=== PATIENT | female | born 1970 | race African-American/Black ===

== ENCOUNTER 2021-07-10 13:39 | Emergency (ER) | payer OTHER, BC ==
[2021-07-10 14:23] LABS: Bilirubin Neg (Negative); Blood, Urine 10 (Negative); Clarity Clear (Clear); Glucose, Urine (Dipstick) Normal (Negative); Ketone, Urine 150 mg/dL (Negative); Leukocyte Negative (Negative); Nitrite Negative (Negative); Protein, Urine (Dipstick) 30 mg/dl (Neg-Trace); Urobilinogen Normal mg/dL (Less than 2)
[2021-07-10 14:38] LABS: RBC/HPF 0-3 HPF (0-3); Squamous Epithelial 0-3 HPF (0-3); WBC/HPF 0-3 HPF (0-3)
[2021-07-10 14:39] LABS: Bacteria/HPF Rare-Few HPF (None Seen); Mucous/LPF Few LPF (<2+)
[2021-07-10 14:40] LABS: #Neutrophils 17.4 10x3/uL (1.5-8.4); %Basophils 0.2 % (0.0-2.0); %Eosinophils 0.1 % (0.0-6.0); %Lymphocytes 5.5 % (18.0-47.0); %Neutrophils 88.7 % (40.0-75.0); Hemoglobin 12.1 g/dL (12.0-15.5); Mean Corpuscular HGB CONC 31.8 g/dL (32.0-36.0); Mean Corpuscular Hemoglobin 27.5 pg (27.0-33.0); Mean Corpuscular Volume 86.6 fl (81.6-98.3); Mean Platelet Volume 9.9 fl (7.4-10.4); Platelet Count 312 10x3/uL (150-450); RBC Distribution Width 13.3 % (11.5-14.5); White Blood Cell (WBC) Count 19.7 10x3/uL (3.5-10.5)
[2021-07-10 14:58] LABS: ALT (SGPT) 12 U/L (8-55); AST (SGOT) 14 U/L (5-34); Albumin 3.9 g/dL (3.5-5.0); Alkaline Phosphatase 59 U/L (40-110); Anion Gap 16 mmol/L (10-20); BUN (Urea Nitrogen) 10 mg/dL (7.0-18.7); Bilirubin, Total 0.4 mg/dL (0.2-1.2); Calc. Creatinine Clearance 0 mL/min (70-130); Calcium 10.4 mg/dL (7.8-10.44); Carbon Dioxide 25 mmol/L (22-29); Chloride 100 mmol/L (98-107); Glucose 100 mg/dL (70-105); Lipase 9 U/L (8-78); Potassium 3.7 mmol/L (3.5-5.1); Protein, Total 8.9 g/dL (6.0-8.3); Sodium 137 mmol/L (136-145)
[2021-07-10] MEDS ORDERED: Morphine 4 MG/ML VIAL ONE ×2 (17:13→19:26)
[2021-07-10] MEDS ORDERED: Morphine 2 MG/ML VIAL ONE (17:13)
[2021-07-10] MEDS ORDERED: Ondansetron PF 4 MG/2 ML Vial ONE (19:26)
[2021-07-10] MEDS ORDERED: Ketorolac Tromethamine 30 MG/ML VIAL ONE (19:26)
[2021-07-10 19:41] LABS: BHCG - Serum POSITIVE (NEGATIVE); Pregs Control Background? CLEAR/WHITE (CLR/WHITE); Pregs Control Bar Appear? YES (CONTROL BAR)
[2021-07-10] MEDS ORDERED: Bupivacaine PF 0.5% 30 ML VIAL ONE (22:40)
[2021-07-10 22:51] LABS: SARS-CoV-2 NAA Rapid Test Not Detected (NotDetected)
[2021-07-10] MEDS ORDERED: Fentanyl 100 MCG/2 ML VIAL ONE (22:59)
[2021-07-10] MEDS ORDERED: PROPOFOL 20 ML ONE (22:59)
[2021-07-10] MEDS ORDERED: Lidocaine 2% PF 5 ML VIAL ONE (22:59)
[2021-07-10] MEDS ORDERED: Dexamethasone 4 mg/ml Vial ONE (23:04)
[2021-07-10] MEDS ORDERED: Rocuronium Bromide 10 MG/ML (10ML VIAL) ONE (23:04)
[2021-07-10] MEDS ORDERED: Glycopyrrolate 0.2 MG/ML 5 ML SYRINGE ONE (23:05)
[2021-07-10] MEDS ORDERED: PHENYLEPHRINE-NS 100 MCG/ML 10 ML SYRINGE ONE (23:24)
[2021-07-10] MEDS ORDERED: ePHEDrine Sulfate 50 MG/10 ML VIAL ONE (23:31)
[2021-07-11] MEDS ORDERED: PROPOFOL 20 ML ONE (01:09)
[2021-07-11] MEDS ORDERED: ceFOXitin 1 GM VIAL ONE (01:16)
[2021-07-11] MEDS ORDERED: Ketorolac Tromethamine 30 MG/ML VIAL ONE (01:17)
[2021-07-11] MEDS ORDERED: PACU-Morphine 4MG/ML VIAL SLOW IVP PRN (01:44)
[2021-07-11] MEDS ORDERED: Ondansetron HCl/PF 4 MG/2 ML Vial IVP PRN (01:44)
[2021-07-11] MEDS ORDERED: Meperidine HCl/PF 25 MG/ML VIAL SLOW IVP PRN (01:44)
[2021-07-11] MEDS ORDERED: Promethazine HCl 25 MG/ML VIAL IM PRN (01:44)
[2021-07-11] MEDS ORDERED: HYDROmorphone 2 MG/ML VIAL SLOW IVP PRN (01:44)
[2021-07-11] MEDS ORDERED: Promethazine HCl 25 MG/ML VIAL IVPB PRN (01:44)
[2021-07-11] MEDS ORDERED: Fentanyl 100 MCG/2 ML VIAL ONE (01:45)
[2021-07-11] MEDS ORDERED: HYDROcodone/Acetaminophen 5/325 mg Tablet PO PRN ×2 (01:45)
[2021-07-11] MEDS ORDERED: Ondansetron PF 4 MG/2 ML Vial IVP PRN (01:45)
[2021-07-11] MEDS ORDERED: Senokot S 8.6-50 MG TAB PO PRN (01:45)
[2021-07-11] MEDS ORDERED: Ondansetron ODT 4 MG TAB PO PRN (01:45)
[2021-07-11] MEDS ORDERED: Zolpidem Tartrate 5 MG TAB PO PRN (01:45)
[2021-07-11] MEDS ORDERED: metroNIDAZOLE 500 MG/100 ML BAG ONE (01:50)
[2021-07-11] MEDS ORDERED: Ibuprofen 600 MG TAB PO PRN (01:51)
[2021-07-11] MEDS ORDERED: Morphine 4 MG/ML VIAL SLOW IVP PRN (01:52)
[2021-07-11] MEDS ORDERED: Lactated Ringer's 1,000 ML IV SCH (02:00)
[2021-07-11] MEDS ORDERED: Ondansetron PF 4 MG/2 ML Vial ONE (02:14)
[2021-07-11] MEDS ORDERED: HYDROmorphone 0.5 MG/0.5 ML SYRINGE ONE (02:15)
[2021-07-11] MEDS ORDERED: Ketorolac Tromethamine 30 MG/ML VIAL IVP SCH (06:00)
[2021-07-11] MEDS ORDERED: metroNIDAZOLE 500 MG in Premix Bag 1 BAG IVPB SCH (06:00)
[2021-07-11] MEDS ORDERED: cefOXitin 2 GM in Sodium Chloride 0.9% 100 ML IVPB SCH (06:00)
[2021-07-11] MEDS ORDERED: Famotidine 20 MG TAB PO SCH (09:00)
[2021-07-11] MEDS ORDERED: LACTINEX 1 TAB PO SCH (09:00)
[2021-07-12] MEDS ORDERED: Ibuprofen 600 MG TAB PO PRN (01:51)
== END 2021-07-10 23:11 | disposition admitted as inpatient to this hospital (09) ==
LOC: CSHERS 13:39
DX: N83.8 Other noninflammatory disorders of ovary, fallopian tube and broad ligament (principal); Z53.9 Procedure and treatment not carried out, unspecified reason
CPT/HCPCS: 36415; 74177; 76856; 80053; 81003; 81015; 83605; 83690; 84702; 84703; 85025; 87040; 94760; 96374; 96375; 96376; J0694; J1100; J1170; J1885; J2001; J2270; J2405; J2704; J3010; S0020; U0002

== ENCOUNTER 2023-06-17 11:59 | Emergency (ER) | payer BC ==
[2023-06-17 12:48] LABS: #Monocytes 0.5 10x3/uL (0.0-1.1); #Neutrophils 2.9 10x3/uL (1.5-8.4); %Basophils 0.5 % (0.0-2.0); %Eosinophils 0.6 % (0.0-6.0); %Lymphocytes 44.1 % (18.0-47.0); %Monocytes 8.7 % (0.0-10.0); %Neutrophils 45.9 % (40.0-75.0); Hemoglobin 12.9 g/dL (12.0-15.5); Mean Corpuscular HGB CONC 33.2 g/dL (32.0-36.0); Mean Corpuscular Hemoglobin 28.2 pg (27.0-33.0); Mean Corpuscular Volume 84.7 fl (81.6-98.3); Mean Platelet Volume 11.1 fl (7.4-10.4); Platelet Count 180 10x3/uL (150-450); RBC Distribution Width 12.7 % (11.5-14.5); Red Blood Cell (RBC) Count 4.58 10x6/uL (3.90-5.03); White Blood Cell (WBC) Count 6.2 10x3/uL (3.5-10.5)
[2023-06-17 13:02] LABS: ALT (SGPT) 12 U/L (8-55); AST (SGOT) 19 U/L (5-34); Albumin 4.6 g/dL (3.5-5.0); Alkaline Phosphatase 44 U/L (40-110); Anion Gap 16 mmol/L (10-20); BUN (Urea Nitrogen) 9 mg/dL (7.0-18.7); Bilirubin, Total 0.3 mg/dL (0.2-1.2); Calc. Creatinine Clearance 0 mL/min (70-130); Carbon Dioxide 25 mmol/L (22-29); Chloride 103 mmol/L (98-107); Estimated GFR 80; Globulin 3.2 g/dL (2.4-3.5); Glucose 97 mg/dL (70-105); Protein, Total 7.8 g/dL (6.0-8.3); Sodium 140 mmol/L (136-145)
== END 2023-06-17 14:25 | disposition home or self-care (01) ==
LOC: CSHERS 11:59
DX: R07.89 Other chest pain (principal); R06.02 Shortness of breath
CPT/HCPCS: 71045; 80053; 83880; 84484; 85025; 93005